=== PATIENT | male | born 1970 | race Caucasian/White ===

== ENCOUNTER 2018-09-16 14:12 | Emergency (ER) | payer SELFPAY ==
[~2018-09-16] VITALS: Ht 170.2 cm; Wt 74.4 kg
[~2018-09-16 14:12] MED LIST: ACIDOPHILUS LA1 EACH PO; KEFLEX750 M1 PO; NORCO1 TA2 PO
[2018-09-16 14:24] VITALS: Ht 170.2 cm; Wt 74.4 kg
[2018-09-16 14:55] VITALS: BP 147/98
== END 2018-09-16 14:55 | disposition home or self-care (01) ==
LOC: ED 14:12
DX: Z13.89 Encounter for screening for other disorder (principal)

== ENCOUNTER 2019-11-21 20:58 | Emergency (ER) | payer SELFPAY ==
[~2019-11-21] VITALS: Ht 167.6 cm; Wt 79.4 kg
[2019-11-21 21:04] VITALS: BP 180/93; Ht 167.6 cm; Wt 79.4 kg
== END 2019-11-21 21:39 | disposition home or self-care (01) ==
LOC: ED 20:58
DX: S71.151A Open bite, right thigh, initial encounter (principal); W54.0XXA Bitten by dog, initial encounter; Y93.89 Activity, other specified; Y92.89 Other specified places as the place of occurrence of the external cause; Y99.8 Other external cause status
CPT/HCPCS: 90715